=== PATIENT | male | born 1990 | race Native Hawaiian/Other Pacific Islander ===

== ENCOUNTER 2016-12-08 11:56 | Emergency (ER) | payer BC ==
[~2016-12-08] VITALS: Ht 185.4 cm; Wt 72.6 kg
[2016-12-08 12:00] VITALS: TEMP 98.1
[2016-12-08 12:31] LABS: PLATELET COUNT 167 K/uL (142-355)
[2016-12-08 13:04] VITALS: BP 128/82
== END 2016-12-08 13:05 | disposition home or self-care (01) ==
LOC: ED 11:56
DX: J32.0 Chronic maxillary sinusitis (principal)
CPT/HCPCS: 36415; 85027; 99283

== ENCOUNTER 2017-12-22 16:52 | Emergency (ER) | payer BC ==
[~2017-12-22] VITALS: Ht 182.9 cm; Wt 72.6 kg
[2017-12-22 17:07] VITALS: BP 121/63; TEMP 97.9
== END 2017-12-22 17:25 | disposition home or self-care (01) ==
LOC: ED 16:52
DX: M25.519 Pain in unspecified shoulder (principal)
CPT/HCPCS: 99281